=== PATIENT | male | born 1950 | race Two or more races ===

== ENCOUNTER 2021-03-15 13:35 | Inpatient (IN) | payer MEDICARE, MEDICAID ==
[~2021-03-15] VITALS: Ht 180.3 cm; Wt 64.9 kg
[2021-03-15] MEDS ORDERED: SODIUM CHLORIDE 0.9% 1000ML BAG (SEPSIS BOLUS) IV ONE (13:45)
[2021-03-15 14:22] LABS: BASOPHILS % 0.5 % (0.0-2.0); EOSINOPHILS % 0.1 % (0.0-5.0); HEMATOCRIT. 53.1 % (42.0-52.0); HEMOGLOBIN. 16.8 g/dL (14.0-18.0); LYMPHOCYTES % 18.7 % (20.0-50.0); MEAN CORPUSCULAR HEMOGLOBIN 30.5 pg (28.0-32.0); MEAN CORPUSCULAR VOLUME 96.3 fL (80.0-94.0); MEAN PLATELET VOLUME 11.4 fl (7.4-10.4); NEUTROPHILS % 75.7 % (40.0-76.0); PLATELET 127 x1000/uL (130-400); RED BLOOD CELL COUNT 5.51 mill/uL (4.7-6.1); RED CELL DISTRIBUTION WIDTH 17.7 % (11.6-14.6)
[2021-03-15 14:29] LABS: CHLORIDE 142 mEq/L (98-107)
[2021-03-15 14:31] LABS: INR 1.4; PROTHROMBIN TIME 14.7 sec (9.6-11.0)
[2021-03-15] MEDS ORDERED: LACTATED RINGERS 1,000 ML IV STA (14:45)
[2021-03-15 14:48] LABS: CLARITY URINE CLEAR (CLEAR); COLOR URINE DARK YELLOW (YELLOW); KETONES URINE TRACE (NEGATIVE); LEUKOCYTE ESTERASE URINE TRACE (NEGATIVE); NITRITE URINE NEGATIVE (NEGATIVE); OCCULT BLOOD URINE NEGATIVE (NEGATIVE); PROTEIN URINE TRACE (NEGATIVE); SPECIFIC GRAVITY URINE 1.027 (1.005-1.030)
[2021-03-15] MEDS ORDERED: VANCOMYCIN 1 G PREMIX 200 ML IV NR (14:56)
[2021-03-15] MEDS ORDERED: AZITHROMYCIN 500MG/250ML 250 ML IV NR (15:00)
[2021-03-15] MEDS ORDERED: PIPERACILLIN/TAZ 3.375G PREMIX 50 ML IV NR (15:00)
[2021-03-15] MEDS ORDERED: PIPERACILLIN/TAZOBACTAM 3.375GM/50ML PREMIX IV ONE (15:00)
[2021-03-15] MEDS ORDERED: CLONIDINE 0.1MG TABLET PO PRN (15:45)
[2021-03-15] MEDS ORDERED: LORAZEPAM 2MG/ML CPJ IV PRN (15:45)
[2021-03-15] MEDS ORDERED: HYDRALAZINE 20MG/ML VIAL IV PRN (15:45)
[2021-03-15] MEDS ORDERED: DEXTROSE 5% WATER 1,000 ML IV SCH (15:45)
[2021-03-15] MEDS ORDERED: DEXTROSE 50% WATER 50ML SYRINGE IV PRN (15:45)
[2021-03-15] MEDS ORDERED: DOCUSATE SODIUM 100MG CAPSULE PO PRN (15:45)
[2021-03-15] MEDS ORDERED: ONDANSETRON HCL 4MG/2ML INJ IV PRN (15:45)
[2021-03-15] MEDS ORDERED: HYDROCODONE/ACETAMINOPHEN 5/325MG TABLET PO PRN (15:45)
[2021-03-15] MEDS ORDERED: MAGNESIUM/ALUMINUM HYDROXIDE/SIMETHICONE 30ML UDC PO PRN (15:45)
[2021-03-15] MEDS ORDERED: IPRATROPIUM/ALBUTEROL 0.5-3(2.5)MG/3ML NEB HHN PRN (15:45)
[2021-03-15] MEDS ORDERED: PIPERACILLIN/TAZ 3.375G PREMIX 50 ML IV SCH (15:45)
[2021-03-15] MEDS ORDERED: MORPHINE SULFATE 2 MG/ML CPJ (NOT FOR IM USE) IV PRN (15:45)
[2021-03-15 16:11] LABS: BG BASE EXCESS -7.5 mmol/L (-2.0-2.0); BG CARBOXYHEMOGLOBIN 0.3 % (0.5-1.5); BG DEOXYHEMOGLOBIN 8.1 % (0.0-5.0); BG HCO3 ACT 14.7 mmol/L (22.0-26.0); BG METHEMOGLOBIN 0.3 % (0.0-1.5); BG OXYGEN SATURATION 91.9 % (92.0-98.5); BG OXYHEMOGLOBIN 91.3 % (94.0-97.0); BG PCO2 22.8 mmHg (35.0-45.0); BG PH 7.428 (7.350-7.450); BG PO2 66.7 mmHg (75.0-100.0); BG SAMPLE SITE RIGHT BRACHIAL; BG TOTAL HEMOGLOBIN 13.7 g/dL (12.0-18.0); BG VENT MODE MASK - NRB
[2021-03-15] MEDS: SODIUM CHLORIDE 0.45% 1,000 ML IV SCH ×2 (16:11→23:39)
[2021-03-15] MEDS ORDERED: PHENYLEPHRINE 100 MG in DEXT 5% WATER 240 ML IV PRN (16:15)
[2021-03-15] MEDS ORDERED: SODIUM CHLORIDE 10% FOR INH 15ML VIAL NEB INH SCH (16:15)
[2021-03-15] MEDS ORDERED: NOREPINEPHRINE 32 MG in DEXT 5% WATER 218 ML IV PRN (16:15)
[2021-03-15] MEDS ORDERED: ACETAMINOPHEN 650MG SUPP PR PRN (16:30)
[2021-03-15] MEDS: NOREPINEPHRINE 32 MG in DEXT 5% WATER 218 ML IV PRN (16:43)
[2021-03-15] MEDS: ENOXAPARIN 30MG/0.3ML SYR SUBCUT SCH (17:28)
[2021-03-15] MEDS: BLOOD SUGAR DIAGNOSTIC STRIP TEST SCH ×2 (17:33→21:02)
[2021-03-15] MEDS: INSULIN LISPRO 100 UNITS/ML SUBCUT SCH ×2 (17:40→21:00)
[2021-03-15] MEDS: IPRATROPIUM/ALBUTEROL 0.5-3(2.5)MG/3ML NEB HHN SCH ×2 (20:25→22:51)
[2021-03-15] MEDS: PIPERACILLIN/TAZOBACTAM 3.375G in DEXT 5% WATER 50ML IV SCH (22:43)
[2021-03-15] MEDS: SODIUM CHLORIDE 0.9% INJ 3ML FLUSH IVF SCH (22:44)
[2021-03-16] VITALS (68 sets, daily range): BP systolic 89–119; BP diastolic 42–82
[2021-03-16] MEDS: IPRATROPIUM/ALBUTEROL 0.5-3(2.5)MG/3ML NEB HHN SCH ×5 (04:20→20:10)
[2021-03-16] MEDS: SODIUM CHLORIDE 0.9% INJ 3ML FLUSH IVF SCH ×3 (06:00→21:32)
[2021-03-16 06:28] LABS: CHLORIDE 142 mEq/L (98-107)
[2021-03-16 06:31] LABS: HEMATOCRIT. 44.6 % (42.0-52.0); HEMOGLOBIN. 14.5 g/dL (14.0-18.0); MEAN CORPUSCULAR HEMOGLOBIN 30.3 pg (28.0-32.0); MEAN CORPUSCULAR VOLUME 93.1 fL (80.0-94.0); MEAN PLATELET VOLUME 11.6 fl (7.4-10.4); PLATELET 72 x1000/uL (130-400); RED BLOOD CELL COUNT 4.79 mill/uL (4.7-6.1); RED CELL DISTRIBUTION WIDTH 17.4 % (11.6-14.6)
[2021-03-16] MEDS ORDERED: NALOXONE HCL 0.4MG/ML VIAL IV PRN (07:30)
[2021-03-16] MEDS: INSULIN LISPRO 100 UNITS/ML SUBCUT SCH ×4 (08:20→21:00)
[2021-03-16] MEDS: BLOOD SUGAR DIAGNOSTIC STRIP TEST SCH ×4 (08:33→21:31)
[2021-03-16 08:38] LABS: PHOSPHORUS 2.4 mg/dL (2.5-4.9)
[2021-03-16] MEDS ORDERED: POTASSIUM CHLORIDE INJ 40 MEQ in DEXT 5% WATER 250 ML IV NR (09:00)
[2021-03-16 09:17] LABS: BG BASE EXCESS -4.7 mmol/L (-2.0-2.0); BG CARBOXYHEMOGLOBIN 0.1 % (0.5-1.5); BG DEOXYHEMOGLOBIN 3.2 % (0.0-5.0); BG FRACTION INSPIRED OXYGEN 99.8; BG HCO3 ACT 16.4 mmol/L (22.0-26.0); BG METHEMOGLOBIN 0.3 % (0.0-1.5); BG OXYGEN SATURATION 96.8 % (92.0-98.5); BG OXYHEMOGLOBIN 96.4 % (94.0-97.0); BG PO2 85.4 mmHg (75.0-100.0); BG SAMPLE SITE RIGHT RADIAL; BG TOTAL HEMOGLOBIN 14.3 g/dL (12.0-18.0); BG VENT MODE MASK - NRB
[2021-03-16] MEDS: PIPERACILLIN/TAZOBACTAM 3.375G in DEXT 5% WATER 50ML IV SCH ×3 (09:20→21:31)
[2021-03-16] MEDS: DEXTROSE 5% WATER 1,000 ML IV SCH ×3 (09:20→18:06)
[2021-03-16 11:01] LABS: PLATELET ESTIMATE DECREASED
[2021-03-16] MEDS ORDERED: LEVETIRACETAM 500 MG in SODIUM CHLORIDE 0.9% 100 ML IV SCH (11:45)
[2021-03-16] MEDS: LEVETIRACETAM 500MG PREMIX 100 ML IV SCH ×2 (13:05→21:31)
[2021-03-16] MEDS: ENOXAPARIN 30MG/0.3ML SYR SUBCUT SCH (18:06)
[2021-03-16] MEDS ORDERED: SODIUM CHLORIDE 3% FOR INH 4ML UD NEB INH NR (18:30)
[2021-03-17] VITALS (98 sets, daily range): BP systolic 55–130; BP diastolic 23–90
[2021-03-17] MEDS: IPRATROPIUM/ALBUTEROL 0.5-3(2.5)MG/3ML NEB HHN SCH ×6 (00:31→23:46)
[2021-03-17] MEDS: NOREPINEPHRINE 32 MG in DEXT 5% WATER 218 ML IV PRN (01:05)
[2021-03-17] MEDS: DEXTROSE 5% WATER 1,000 ML IV SCH ×2 (04:00→09:43)
[2021-03-17] MEDS: SODIUM CHLORIDE 0.9% INJ 3ML FLUSH IVF SCH ×3 (05:14→22:20)
[2021-03-17] MEDS: PIPERACILLIN/TAZOBACTAM 3.375G in DEXT 5% WATER 50ML IV SCH ×3 (05:14→22:21)
[2021-03-17 05:56] LABS: BASOPHILS % 0.1 % (0.0-2.0); EOSINOPHILS % 0.5 % (0.0-5.0); HEMATOCRIT. 35.8 % (42.0-52.0); HEMOGLOBIN. 12.1 g/dL (14.0-18.0); LYMPHOCYTES % 10.9 % (20.0-50.0); MEAN CORPUSCULAR HEMOGLOBIN 31.1 pg (28.0-32.0); MEAN PLATELET VOLUME 10.3 fl (7.4-10.4); MONOCYTES % 2.4 % (2.0-8.0); NEUTROPHILS % 86.1 % (40.0-76.0); RED BLOOD CELL COUNT 3.89 mill/uL (4.7-6.1); RED CELL DISTRIBUTION WIDTH 16.9 % (11.6-14.6)
[2021-03-17 06:04] LABS: PHOSPHORUS 1.7 mg/dL (2.5-4.9)
[2021-03-17 06:22] LABS: PLATELET 42 x1000/uL (130-400)
[2021-03-17 07:25] LABS: PLATELET ESTIMATE MARKEDLY DECREASED
[2021-03-17] MEDS: INSULIN LISPRO 100 UNITS/ML SUBCUT SCH ×4 (07:38→20:52)
[2021-03-17] MEDS: BLOOD SUGAR DIAGNOSTIC STRIP TEST SCH ×4 (07:38→20:52)
[2021-03-17] MEDS ORDERED: POTASSIUM CHLORIDE INJ 40 MEQ in DEXT 5% WATER 250 ML IV NR (09:00)
[2021-03-17] MEDS: LEVETIRACETAM 500MG PREMIX 100 ML IV SCH ×2 (09:43→20:54)
[2021-03-17] MEDS ORDERED: POTASSIUM PHOS,M-BASIC-D-BASIC 20 MMOL in DEXT 5% WATER 243.3333 ML IV NR (15:00)
[2021-03-18] VITALS (99 sets, daily range): BP systolic 56–161; BP diastolic 26–96
[2021-03-18] MEDS: DEXTROSE 5% WATER 1,000 ML IV SCH ×3 (00:38→19:16)
[2021-03-18] MEDS: IPRATROPIUM/ALBUTEROL 0.5-3(2.5)MG/3ML NEB HHN SCH ×5 (03:45→20:40)
[2021-03-18] MEDS: SODIUM CHLORIDE 0.9% INJ 3ML FLUSH IVF SCH ×3 (06:33→22:00)
[2021-03-18 06:52] LABS: BASOPHILS % 0.1 % (0.0-2.0); HEMATOCRIT. 29.5 % (42.0-52.0); HEMOGLOBIN. 10.2 g/dL (14.0-18.0); LYMPHOCYTES % 13.9 % (20.0-50.0); MEAN CORPUSCULAR HEMOGLOBIN 31.3 pg (28.0-32.0); MEAN CORPUSCULAR VOLUME 90.6 fL (80.0-94.0); MEAN PLATELET VOLUME 11.4 fl (7.4-10.4); MONOCYTES % 2.7 % (2.0-8.0); NEUTROPHILS % 82.3 % (40.0-76.0); RED BLOOD CELL COUNT 3.25 mill/uL (4.7-6.1); RED CELL DISTRIBUTION WIDTH 16.9 % (11.6-14.6)
[2021-03-18 06:55] LABS: CHLORIDE 129 mEq/L (98-107)
[2021-03-18] MEDS: PIPERACILLIN/TAZOBACTAM 3.375G in DEXT 5% WATER 50ML IV SCH ×2 (06:58→13:11)
[2021-03-18 07:02] LABS: PHOSPHORUS 2.5 mg/dL (2.5-4.9)
[2021-03-18 07:07] LABS: PLATELET 32 x1000/uL (130-400)
[2021-03-18] MEDS: BLOOD SUGAR DIAGNOSTIC STRIP TEST SCH ×4 (07:57→20:15)
[2021-03-18] MEDS: INSULIN LISPRO 100 UNITS/ML SUBCUT SCH ×4 (08:20→20:15)
[2021-03-18] MEDS ORDERED: POTASSIUM CHLORIDE 20MEQ/PACKET PO NR (08:30)
[2021-03-18] MEDS: LEVETIRACETAM 500MG PREMIX 100 ML IV SCH ×2 (09:08→20:14)
[2021-03-18] MEDS: MIDODRINE HCL 5MG TABLET PO SCH ×3 (09:26→16:31)
[2021-03-18] MEDS: PANTOPRAZOLE SODIUM 40 MG/VIAL IV SCH (10:36)
[2021-03-18] MEDS: MEROPENEM 1000MG in NORMAL SALINE 100ML IV SCH (16:43)
[2021-03-18] MEDS: ACETAMINOPHEN 325MG TABLET PO PRN (16:59)
[2021-03-18] MEDS: GUAIFENESIN 200MG/10ML SUGAR FREE UDC PO PRN ×3 (17:09→23:22)
[2021-03-19] VITALS (86 sets, daily range): BP systolic 72–167; BP diastolic 30–86
[2021-03-19] MEDS: MEROPENEM 1000MG in NORMAL SALINE 100ML IV SCH ×3 (02:40→17:30)
[2021-03-19] MEDS: DEXTROSE 5% WATER 1,000 ML IV SCH ×2 (04:56→16:00)
[2021-03-19] MEDS: SODIUM CHLORIDE 0.9% INJ 3ML FLUSH IVF SCH ×3 (06:29→22:21)
[2021-03-19 06:50] LABS: BASOPHILS % 0.1 % (0.0-2.0); EOSINOPHILS % 4.6 % (0.0-5.0); HEMATOCRIT. 28.6 % (42.0-52.0); HEMOGLOBIN. 10.2 g/dL (14.0-18.0); LYMPHOCYTES % 13.1 % (20.0-50.0); MEAN CORPUSCULAR HEMOGLOBIN 31.6 pg (28.0-32.0); MEAN CORPUSCULAR VOLUME 88.6 fL (80.0-94.0); MONOCYTES % 2.9 % (2.0-8.0); NEUTROPHILS % 79.3 % (40.0-76.0); RED BLOOD CELL COUNT 3.23 mill/uL (4.7-6.1); RED CELL DISTRIBUTION WIDTH 16.9 % (11.6-14.6)
[2021-03-19 06:57] LABS: CHLORIDE 116 mEq/L (98-107)
[2021-03-19 07:04] LABS: PHOSPHORUS 2.1 mg/dL (2.5-4.9)
[2021-03-19 07:12] LABS: PLATELET 43 x1000/uL (130-400)
[2021-03-19] MEDS: BLOOD SUGAR DIAGNOSTIC STRIP TEST SCH ×4 (07:56→21:00)
[2021-03-19] MEDS: INSULIN LISPRO 100 UNITS/ML SUBCUT SCH ×4 (07:57→21:00)
[2021-03-19] MEDS: PANTOPRAZOLE SODIUM 40 MG/VIAL IV SCH (08:35)
[2021-03-19] MEDS: CYANOCOBALAMIN 1000MCG TABLET PO SCH (08:36)
[2021-03-19] MEDS: LEVETIRACETAM 500MG PREMIX 100 ML IV SCH ×2 (08:36→20:11)
[2021-03-19] MEDS: MIDODRINE HCL 5MG TABLET PO SCH ×3 (08:36→17:31)
[2021-03-19] MEDS ORDERED: POTASSIUM CHLORIDE 20MEQ/PACKET NG NR (09:30)
[2021-03-19] MEDS: IPRATROPIUM/ALBUTEROL 0.5-3(2.5)MG/3ML NEB HHN SCH ×4 (09:39→20:51)
[2021-03-19] MEDS ORDERED: POTASSIUM PHOS,M-BASIC-D-BASIC 20 MMOL in DEXT 5% WATER 243.3333 ML IV SCH (11:00)
[2021-03-19] MEDS: NOREPINEPHRINE 32 MG in DEXT 5% WATER 218 ML IV PRN (11:07)
[2021-03-20] VITALS (98 sets, daily range): BP systolic 59–178; BP diastolic 35–102
[2021-03-20] MEDS: IPRATROPIUM/ALBUTEROL 0.5-3(2.5)MG/3ML NEB HHN SCH ×5 (00:37→20:30)
[2021-03-20] MEDS: MEROPENEM 1000MG in NORMAL SALINE 100ML IV SCH ×3 (02:27→17:09)
[2021-03-20 04:16] LABS: BASOPHILS % 0.2 % (0.0-2.0); EOSINOPHILS % 2.5 % (0.0-5.0); HEMATOCRIT. 29.1 % (42.0-52.0); HEMOGLOBIN. 10.3 g/dL (14.0-18.0); LYMPHOCYTES % 9.4 % (20.0-50.0); MEAN CORPUSCULAR VOLUME 87.6 fL (80.0-94.0); MEAN PLATELET VOLUME 11.2 fl (7.4-10.4); NEUTROPHILS % 84.9 % (40.0-76.0); RED BLOOD CELL COUNT 3.32 mill/uL (4.7-6.1); RED CELL DISTRIBUTION WIDTH 16.9 % (11.6-14.6)
[2021-03-20 04:17] LABS: CHLORIDE 111 mEq/L (98-107)
[2021-03-20 04:21] LABS: PLATELET 47 x1000/uL (130-400)
[2021-03-20 04:23] LABS: PHOSPHORUS 2.2 mg/dL (2.5-4.9)
[2021-03-20] MEDS: SODIUM CHLORIDE 0.9% INJ 3ML FLUSH IVF SCH ×2 (06:00→14:00)
[2021-03-20] MEDS: LEVETIRACETAM 500MG PREMIX 100 ML IV SCH ×2 (08:33→20:50)
[2021-03-20] MEDS: BLOOD SUGAR DIAGNOSTIC STRIP TEST SCH ×4 (08:37→21:04)
[2021-03-20] MEDS: PANTOPRAZOLE SODIUM 40 MG/VIAL IV SCH (08:43)
[2021-03-20] MEDS: CYANOCOBALAMIN 1000MCG TABLET PO SCH (08:43)
[2021-03-20] MEDS: MIDODRINE HCL 5MG TABLET PO SCH ×3 (08:43→17:09)
[2021-03-20] MEDS: INSULIN LISPRO 100 UNITS/ML SUBCUT SCH ×4 (08:45→21:11)
[2021-03-20] MEDS ORDERED: POTASSIUM CHLORIDE 20MEQ/PACKET NG NR (09:15)
[2021-03-20] MEDS ORDERED: POTASSIUM PHOS,M-BASIC-D-BASIC 20 MMOL in DEXT 5% WATER 243.3333 ML IV NR (11:00)
[2021-03-20] MEDS: NOREPINEPHRINE 32 MG in DEXT 5% WATER 218 ML IV PRN (17:10)
[2021-03-21] VITALS (95 sets, daily range): BP systolic 75–151; BP diastolic 45–95
[2021-03-21] MEDS: IPRATROPIUM/ALBUTEROL 0.5-3(2.5)MG/3ML NEB HHN SCH ×6 (00:17→20:30)
[2021-03-21] MEDS: MEROPENEM 1000MG in NORMAL SALINE 100ML IV SCH ×3 (01:34→17:39)
[2021-03-21 06:14] LABS: BASOPHILS % 0.1 % (0.0-2.0); EOSINOPHILS % 2.3 % (0.0-5.0); HEMATOCRIT. 30.3 % (42.0-52.0); HEMOGLOBIN. 10.7 g/dL (14.0-18.0); MEAN PLATELET VOLUME 11.2 fl (7.4-10.4); MONOCYTES % 4.1 % (2.0-8.0); NEUTROPHILS % 83.5 % (40.0-76.0); PLATELET 70 x1000/uL (130-400); RED BLOOD CELL COUNT 3.44 mill/uL (4.7-6.1)
[2021-03-21 06:24] LABS: CHLORIDE 108 mEq/L (98-107)
[2021-03-21 06:32] LABS: PHOSPHORUS 2.4 mg/dL (2.5-4.9)
[2021-03-21] MEDS: BLOOD SUGAR DIAGNOSTIC STRIP TEST SCH ×4 (07:54→21:55)
[2021-03-21] MEDS: INSULIN LISPRO 100 UNITS/ML SUBCUT SCH ×4 (07:54→21:56)
[2021-03-21] MEDS: PANTOPRAZOLE SODIUM 40 MG/VIAL IV SCH (09:21)
[2021-03-21] MEDS: MIDODRINE HCL 5MG TABLET PO SCH ×3 (09:22→17:39)
[2021-03-21] MEDS: CYANOCOBALAMIN 1000MCG TABLET PO SCH (09:23)
[2021-03-21] MEDS: LEVETIRACETAM 500MG PREMIX 100 ML IV SCH ×2 (10:48→21:56)
[2021-03-21] MEDS ORDERED: SODIUM PHOS,M-BASIC-D-BASIC 10 MM in DEXT 5% WATER 246.6667 ML IV SCH (11:00)
[2021-03-21] MEDS: SODIUM CHLORIDE 0.9% INJ 3ML FLUSH IVF SCH ×2 (14:00→21:55)
[2021-03-21] MEDS: NOREPINEPHRINE 32 MG in DEXT 5% WATER 218 ML IV PRN (23:32)
[2021-03-22] VITALS (97 sets, daily range): BP systolic 76–129; BP diastolic 19–74
[2021-03-22] MEDS: IPRATROPIUM/ALBUTEROL 0.5-3(2.5)MG/3ML NEB HHN SCH ×6 (00:51→20:23)
[2021-03-22] MEDS: MEROPENEM 1000MG in NORMAL SALINE 100ML IV SCH ×3 (02:48→17:33)
[2021-03-22] MEDS: SODIUM CHLORIDE 0.9% INJ 3ML FLUSH IVF SCH ×3 (05:19→22:45)
[2021-03-22 05:52] LABS: CHLORIDE 108 mEq/L (98-107)
[2021-03-22 05:58] LABS: PHOSPHORUS 2.1 mg/dL (2.5-4.9)
[2021-03-22 06:03] LABS: BASOPHILS % 0.2 % (0.0-2.0); EOSINOPHILS % 2.8 % (0.0-5.0); HEMATOCRIT. 26.1 % (42.0-52.0); HEMOGLOBIN. 9.2 g/dL (14.0-18.0); LYMPHOCYTES % 10.8 % (20.0-50.0); MEAN CORPUSCULAR HEMOGLOBIN 30.9 pg (28.0-32.0); MEAN CORPUSCULAR VOLUME 87.6 fL (80.0-94.0); MEAN PLATELET VOLUME 11.1 fl (7.4-10.4); MONOCYTES % 3.5 % (2.0-8.0); NEUTROPHILS % 82.7 % (40.0-76.0); PLATELET 89 x1000/uL (130-400); RED BLOOD CELL COUNT 2.98 mill/uL (4.7-6.1); RED CELL DISTRIBUTION WIDTH 17.3 % (11.6-14.6)
[2021-03-22] MEDS ORDERED: SODIUM PHOS,M-BASIC-D-BASIC 20 MM in DEXT 5% WATER 243.3333 ML IV SCH (07:00)
[2021-03-22] MEDS: BLOOD SUGAR DIAGNOSTIC STRIP TEST SCH ×4 (07:50→20:26)
[2021-03-22] MEDS: INSULIN LISPRO 100 UNITS/ML SUBCUT SCH ×4 (08:20→20:26)
[2021-03-22] MEDS: LEVETIRACETAM 500MG PREMIX 100 ML IV SCH ×2 (09:07→20:26)
[2021-03-22] MEDS: MIDODRINE HCL 5MG TABLET PO SCH ×3 (09:07→17:33)
[2021-03-22] MEDS: PANTOPRAZOLE SODIUM 40 MG/VIAL IV SCH (09:07)
[2021-03-22] MEDS: CYANOCOBALAMIN 1000MCG TABLET PO SCH (09:07)
[2021-03-23] VITALS (98 sets, daily range): BP systolic 66–133; BP diastolic 33–78
[2021-03-23] MEDS: IPRATROPIUM/ALBUTEROL 0.5-3(2.5)MG/3ML NEB HHN SCH ×5 (00:33→20:19)
[2021-03-23] MEDS: NOREPINEPHRINE 32 MG in DEXT 5% WATER 218 ML IV PRN ×3 (00:50→01:56)
[2021-03-23] MEDS: MEROPENEM 1000MG in NORMAL SALINE 100ML IV SCH ×2 (01:03→09:29)
[2021-03-23 06:06] LABS: CHLORIDE 107 mEq/L (98-107)
[2021-03-23 06:16] LABS: PHOSPHORUS 2.4 mg/dL (2.5-4.9)
[2021-03-23] MEDS: BLOOD SUGAR DIAGNOSTIC STRIP TEST SCH ×4 (07:50→20:39)
[2021-03-23] MEDS: INSULIN LISPRO 100 UNITS/ML SUBCUT SCH ×4 (08:20→21:00)
[2021-03-23] MEDS: CYANOCOBALAMIN 1000MCG TABLET PO SCH (09:29)
[2021-03-23] MEDS: PANTOPRAZOLE SODIUM 40 MG/VIAL IV SCH (09:29)
[2021-03-23] MEDS: MIDODRINE HCL 5MG TABLET PO SCH ×3 (09:29→18:05)
[2021-03-23] MEDS: LEVETIRACETAM 500MG PREMIX 100 ML IV SCH ×2 (09:29→20:39)
[2021-03-23] MEDS ORDERED: POTASSIUM PHOS,M-BASIC-D-BASIC 20 MMOL in DEXT 5% WATER 243.3333 ML IV NR (10:00)
[2021-03-23 10:16] LABS: BASOPHILS % 0.3 % (0.0-2.0); HEMATOCRIT. 26.1 % (42.0-52.0); HEMOGLOBIN. 9.1 g/dL (14.0-18.0); LYMPHOCYTES % 11.1 % (20.0-50.0); MEAN CORPUSCULAR HEMOGLOBIN 31.2 pg (28.0-32.0); MEAN CORPUSCULAR VOLUME 89.2 fL (80.0-94.0); MEAN PLATELET VOLUME 11.4 fl (7.4-10.4); MONOCYTES % 5.3 % (2.0-8.0); NEUTROPHILS % 81.3 % (40.0-76.0); PLATELET 134 x1000/uL (130-400); RED BLOOD CELL COUNT 2.93 mill/uL (4.7-6.1); RED CELL DISTRIBUTION WIDTH 16.6 % (11.6-14.6)
[2021-03-23] MEDS ORDERED: SODIUM CHLORIDE 0.45% 250 ML IV NR (12:30)
[2021-03-23] MEDS: SODIUM CHLORIDE 0.9% INJ 3ML FLUSH IVF SCH ×2 (14:00→21:26)
[2021-03-23] MEDS ORDERED: SODIUM CHLORIDE 0.45% 250 ML IV ONE (14:00)
[2021-03-23] MEDS ORDERED: IPRATROPIUM/ALBUTEROL 0.5-3(2.5)MG/3ML NEB ONE (17:10)
[2021-03-23] MEDS: GUAIFENESIN 200MG/10ML SUGAR FREE UDC PO PRN (20:39)
[2021-03-24] VITALS (69 sets, daily range): BP systolic 62–114; BP diastolic 38–81
[2021-03-24] MEDS: IPRATROPIUM/ALBUTEROL 0.5-3(2.5)MG/3ML NEB HHN SCH ×6 (00:36→20:25)
[2021-03-24] MEDS: SODIUM CHLORIDE 0.9% INJ 3ML FLUSH IVF SCH ×3 (06:00→21:48)
[2021-03-24] MEDS: BLOOD SUGAR DIAGNOSTIC STRIP TEST SCH ×4 (07:50→21:00)
[2021-03-24] MEDS: INSULIN LISPRO 100 UNITS/ML SUBCUT SCH ×4 (08:20→21:00)
[2021-03-24] MEDS: PANTOPRAZOLE SODIUM 40 MG/VIAL IV SCH (08:31)
[2021-03-24] MEDS: MIDODRINE HCL 5MG TABLET PO SCH ×3 (08:32→17:03)
[2021-03-24] MEDS: LEVETIRACETAM 500MG PREMIX 100 ML IV SCH ×2 (08:32→21:47)
[2021-03-24] MEDS: CYANOCOBALAMIN 1000MCG TABLET PO SCH (08:32)
[2021-03-24 13:12] LABS: BASOPHILS % 0.3 % (0.0-2.0); EOSINOPHILS % 1.2 % (0.0-5.0); HEMATOCRIT. 22.3 % (42.0-52.0); HEMOGLOBIN. 7.8 g/dL (14.0-18.0); LYMPHOCYTES % 11.8 % (20.0-50.0); MEAN CORPUSCULAR VOLUME 88.7 fL (80.0-94.0); MEAN PLATELET VOLUME 10.9 fl (7.4-10.4); MONOCYTES % 5.2 % (2.0-8.0); NEUTROPHILS % 81.5 % (40.0-76.0); PLATELET 133 x1000/uL (130-400); RED BLOOD CELL COUNT 2.51 mill/uL (4.7-6.1); RED CELL DISTRIBUTION WIDTH 16.9 % (11.6-14.6)
[2021-03-24 13:22] LABS: CHLORIDE 106 mEq/L (98-107)
[2021-03-24] MEDS: ASCORBIC ACID 500 MG TABLET PO SCH (17:03)
[2021-03-24] MEDS: GUAIFENESIN 200MG/10ML SUGAR FREE UDC PO SCH ×2 (17:03→23:19)
[2021-03-24] MEDS: ZINC SULFATE 220 MG ( 50 ) CAPSULE PO SCH (17:03)
[2021-03-25] VITALS (68 sets, daily range): BP systolic 44–122; BP diastolic 23–79
[2021-03-25] MEDS: IPRATROPIUM/ALBUTEROL 0.5-3(2.5)MG/3ML NEB HHN SCH ×5 (00:34→15:15)
[2021-03-25] MEDS: GUAIFENESIN 200MG/10ML SUGAR FREE UDC PO SCH ×3 (05:32→17:50)
[2021-03-25] MEDS: SODIUM CHLORIDE 0.9% INJ 3ML FLUSH IVF SCH ×3 (05:33→22:00)
[2021-03-25 06:59] LABS: BASOPHILS % 0.2 % (0.0-2.0); EOSINOPHILS % 1.1 % (0.0-5.0); HEMATOCRIT. 21.1 % (42.0-52.0); HEMOGLOBIN. 7.4 g/dL (14.0-18.0); LYMPHOCYTES % 10.5 % (20.0-50.0); MEAN CORPUSCULAR HEMOGLOBIN 30.8 pg (28.0-32.0); MEAN CORPUSCULAR VOLUME 87.7 fL (80.0-94.0); MEAN PLATELET VOLUME 10.8 fl (7.4-10.4); MONOCYTES % 5.7 % (2.0-8.0); NEUTROPHILS % 82.5 % (40.0-76.0); PLATELET 149 x1000/uL (130-400); RED CELL DISTRIBUTION WIDTH 17.1 % (11.6-14.6)
[2021-03-25 07:00] LABS: CHLORIDE 105 mEq/L (98-107)
[2021-03-25] MEDS: INSULIN LISPRO 100 UNITS/ML SUBCUT SCH ×4 (08:20→21:00)
[2021-03-25] MEDS: BLOOD SUGAR DIAGNOSTIC STRIP TEST SCH ×4 (08:30→21:53)
[2021-03-25] MEDS: ZINC SULFATE 220 MG ( 50 ) CAPSULE PO SCH (09:32)
[2021-03-25] MEDS: LEVETIRACETAM 500MG PREMIX 100 ML IV SCH ×2 (09:32→21:52)
[2021-03-25] MEDS: ASCORBIC ACID 500 MG TABLET PO SCH (09:32)
[2021-03-25] MEDS: MIDODRINE HCL 5MG TABLET PO SCH ×3 (09:33→17:50)
[2021-03-25] MEDS: PANTOPRAZOLE SODIUM 40 MG/VIAL IV SCH (09:36)
[2021-03-26] VITALS (54 sets, daily range): BP systolic 74–120; BP diastolic 36–66
[2021-03-26] MEDS: GUAIFENESIN 200MG/10ML SUGAR FREE UDC PO SCH ×4 (00:17→17:20)
[2021-03-26] MEDS: IPRATROPIUM/ALBUTEROL 0.5-3(2.5)MG/3ML NEB HHN SCH ×6 (00:29→20:44)
[2021-03-26] MEDS: SODIUM CHLORIDE 0.9% INJ 3ML FLUSH IVF SCH ×3 (06:00→21:31)
[2021-03-26 06:53] LABS: BASOPHILS % 0.6 % (0.0-2.0); EOSINOPHILS % 1.2 % (0.0-5.0); HEMATOCRIT. 22.1 % (42.0-52.0); HEMOGLOBIN. 7.8 g/dL (14.0-18.0); LYMPHOCYTES % 11.4 % (20.0-50.0); MEAN CORPUSCULAR HEMOGLOBIN 30.8 pg (28.0-32.0); MEAN CORPUSCULAR VOLUME 87.4 fL (80.0-94.0); MEAN PLATELET VOLUME 10.7 fl (7.4-10.4); MONOCYTES % 6.3 % (2.0-8.0); NEUTROPHILS % 80.5 % (40.0-76.0); PLATELET 197 x1000/uL (130-400); RED BLOOD CELL COUNT 2.53 mill/uL (4.7-6.1); RED CELL DISTRIBUTION WIDTH 16.9 % (11.6-14.6)
[2021-03-26 07:04] LABS: CHLORIDE 105 mEq/L (98-107)
[2021-03-26] MEDS: INSULIN LISPRO 100 UNITS/ML SUBCUT SCH ×4 (07:47→21:00)
[2021-03-26] MEDS: BLOOD SUGAR DIAGNOSTIC STRIP TEST SCH ×4 (07:47→21:31)
[2021-03-26] MEDS: LEVETIRACETAM 500MG PREMIX 100 ML IV SCH ×2 (09:07→21:38)
[2021-03-26] MEDS: PANTOPRAZOLE SODIUM 40 MG/VIAL IV SCH (10:26)
[2021-03-26] MEDS: ASCORBIC ACID 500 MG TABLET PO SCH (10:27)
[2021-03-26] MEDS: MIDODRINE HCL 5MG TABLET PO SCH ×3 (10:27→17:20)
[2021-03-26] MEDS: ZINC SULFATE 220 MG ( 50 ) CAPSULE PO SCH (10:27)
[2021-03-27] VITALS (24 sets, daily range): BP systolic 71–141; BP diastolic 34–80
[2021-03-27] MEDS: IPRATROPIUM/ALBUTEROL 0.5-3(2.5)MG/3ML NEB HHN SCH ×6 (00:30→20:22)
[2021-03-27] MEDS: GUAIFENESIN 200MG/10ML SUGAR FREE UDC PO SCH ×4 (00:52→18:39)
[2021-03-27] MEDS: SODIUM CHLORIDE 0.9% INJ 3ML FLUSH IVF SCH ×3 (05:06→21:03)
[2021-03-27 06:17] LABS: BASOPHILS % 0.9 % (0.0-2.0); EOSINOPHILS % 1.3 % (0.0-5.0); HEMOGLOBIN. 7.7 g/dL (14.0-18.0); MEAN CORPUSCULAR HEMOGLOBIN 30.4 pg (28.0-32.0); MEAN CORPUSCULAR VOLUME 87.1 fL (80.0-94.0); MEAN PLATELET VOLUME 10.1 fl (7.4-10.4); MONOCYTES % 7.7 % (2.0-8.0); NEUTROPHILS % 78.1 % (40.0-76.0); PLATELET 215 x1000/uL (130-400); RED BLOOD CELL COUNT 2.53 mill/uL (4.7-6.1); RED CELL DISTRIBUTION WIDTH 17.1 % (11.6-14.6)
[2021-03-27 06:22] LABS: CHLORIDE 104 mEq/L (98-107)
[2021-03-27] MEDS: INSULIN LISPRO 100 UNITS/ML SUBCUT SCH ×4 (08:20→21:00)
[2021-03-27] MEDS: BLOOD SUGAR DIAGNOSTIC STRIP TEST SCH ×4 (08:40→20:51)
[2021-03-27] MEDS: LEVETIRACETAM 500MG PREMIX 100 ML IV SCH ×2 (09:24→20:51)
[2021-03-27] MEDS: PANTOPRAZOLE SODIUM 40 MG/VIAL IV SCH (09:25)
[2021-03-27] MEDS: ASCORBIC ACID 500 MG TABLET PO SCH (09:25)
[2021-03-27] MEDS: ZINC SULFATE 220 MG ( 50 ) CAPSULE PO SCH (09:25)
[2021-03-27] MEDS: MIDODRINE HCL 5MG TABLET PO SCH ×3 (09:25→18:39)
[2021-03-27] MEDS ORDERED: SODIUM CHLORIDE 0.9% 500 ML IV ONE (13:30)
[2021-03-27] MEDS ORDERED: SODIUM CHLORIDE 0.9% 500 ML IV SCH (13:30)
[2021-03-28] VITALS (12 sets, daily range): BP systolic 97–131; BP diastolic 41–68
[2021-03-28] MEDS: IPRATROPIUM/ALBUTEROL 0.5-3(2.5)MG/3ML NEB HHN SCH ×5 (00:15→20:47)
[2021-03-28] MEDS: GUAIFENESIN 200MG/10ML SUGAR FREE UDC PO SCH ×4 (00:26→17:39)
[2021-03-28] MEDS: SODIUM CHLORIDE 0.9% INJ 3ML FLUSH IVF SCH ×3 (05:56→21:29)
[2021-03-28] MEDS ORDERED: LORAZEPAM 2MG/ML CPJ IV PRN (06:45)
[2021-03-28] MEDS: INSULIN LISPRO 100 UNITS/ML SUBCUT SCH ×4 (08:00→21:00)
[2021-03-28 08:13] LABS: HEMATOCRIT 28.7 % (42.0-52.0); HEMOGLOBIN 9.8 g/dL (14.0-18.0)
[2021-03-28] MEDS: BLOOD SUGAR DIAGNOSTIC STRIP TEST SCH ×4 (08:18→21:29)
[2021-03-28] MEDS: LEVETIRACETAM 500MG PREMIX 100 ML IV SCH (10:00)
[2021-03-28] MEDS: PANTOPRAZOLE SODIUM 40 MG/VIAL IV SCH (10:01)
[2021-03-28] MEDS: ASCORBIC ACID 500 MG TABLET PO SCH (13:00)
[2021-03-28] MEDS: ZINC SULFATE 220 MG ( 50 ) CAPSULE PO SCH (13:00)
[2021-03-28] MEDS: MIDODRINE HCL 5MG TABLET PO SCH (14:23)
[2021-03-28] MEDS: ACETAMINOPHEN 325MG TABLET PO PRN (14:24)
[2021-03-28] MEDS: LEVETIRACETAM 1,250 MG in SODIUM CHLORIDE 0.9% 100 ML IV SCH (21:59)
[2021-03-29] VITALS (12 sets, daily range): BP systolic 99–132; BP diastolic 54–67
[2021-03-29] MEDS: GUAIFENESIN 200MG/10ML SUGAR FREE UDC PO SCH ×4 (01:03→18:27)
[2021-03-29] MEDS: IPRATROPIUM/ALBUTEROL 0.5-3(2.5)MG/3ML NEB HHN SCH ×6 (02:25→20:10)
[2021-03-29 06:17] LABS: HEMATOCRIT. 24.9 % (42.0-52.0); HEMOGLOBIN. 8.3 g/dL (14.0-18.0); MEAN CORPUSCULAR HEMOGLOBIN 29.9 pg (28.0-32.0); MEAN CORPUSCULAR VOLUME 89.9 fL (80.0-94.0); MEAN PLATELET VOLUME 9.7 fl (7.4-10.4); PLATELET 253 x1000/uL (130-400); RED BLOOD CELL COUNT 2.77 mill/uL (4.7-6.1); RED CELL DISTRIBUTION WIDTH 17.5 % (11.6-14.6)
[2021-03-29 06:30] LABS: CHLORIDE 107 mEq/L (98-107)
[2021-03-29] MEDS: SODIUM CHLORIDE 0.9% INJ 3ML FLUSH IVF SCH ×3 (06:40→22:52)
[2021-03-29] MEDS: INSULIN LISPRO 100 UNITS/ML SUBCUT SCH ×4 (08:00→20:54)
[2021-03-29] MEDS: BLOOD SUGAR DIAGNOSTIC STRIP TEST SCH ×4 (08:12→20:26)
[2021-03-29] MEDS: PANTOPRAZOLE SODIUM 40 MG/VIAL IV SCH (09:30)
[2021-03-29] MEDS: ASCORBIC ACID 500 MG TABLET PO SCH (09:30)
[2021-03-29] MEDS: ZINC SULFATE 220 MG ( 50 ) CAPSULE PO SCH (09:30)
[2021-03-29] MEDS: LEVETIRACETAM 1,250 MG in SODIUM CHLORIDE 0.9% 100 ML IV SCH ×2 (09:30→20:25)
[2021-03-29] MEDS: MIDODRINE HCL 5MG TABLET PO SCH ×3 (09:32→20:26)
[2021-03-29] MEDS ORDERED: VANCOMYCIN 1250MG in DEXTROSE 5% WATER 250ML IV NR (16:00)
[2021-03-29] MEDS: MEROPENEM 1,000 MG in SODIUM CHLORIDE 0.9% 100 ML IV SCH (16:25)
[2021-03-29] MEDS: VANCOMYCIN 750 MG PREMIX 150 ML IV SCH ×2 (18:16→18:27)
[2021-03-29 19:09] LABS: COLOR URINE ORANGE (YELLOW); KETONES URINE TRACE (NEGATIVE); LEUKOCYTE ESTERASE URINE 1+ (NEGATIVE); NITRITE URINE NEGATIVE (NEGATIVE); OCCULT BLOOD URINE NEGATIVE (NEGATIVE); PH URINE 5.5 (4.5-8.0); PROTEIN URINE 1+ (NEGATIVE); SPECIFIC GRAVITY URINE 1.029 (1.005-1.030)
[2021-03-29 19:22] LABS: CLARITY URINE HAZY (CLEAR)
[2021-03-29] MEDS: ACETAMINOPHEN 325MG TABLET PO PRN (20:26)
[2021-03-29 23:24] LABS: PLATELET ESTIMATE NORMAL
[2021-03-30] VITALS (12 sets, daily range): BP systolic 88–105; BP diastolic 40–62
[2021-03-30] MEDS: GUAIFENESIN 200MG/10ML SUGAR FREE UDC PO SCH ×5 (00:56→23:32)
[2021-03-30] MEDS: MEROPENEM 1,000 MG in SODIUM CHLORIDE 0.9% 100 ML IV SCH ×4 (00:56→23:32)
[2021-03-30] MEDS: IPRATROPIUM/ALBUTEROL 0.5-3(2.5)MG/3ML NEB HHN SCH ×6 (01:04→20:50)
[2021-03-30] MEDS: SODIUM CHLORIDE 0.9% INJ 3ML FLUSH IVF SCH ×3 (05:09→21:32)
[2021-03-30 07:05] LABS: BASOPHILS % 0.4 % (0.0-2.0); CHLORIDE 105 mEq/L (98-107); EOSINOPHILS % 0.7 % (0.0-5.0); HEMATOCRIT. 23.8 % (42.0-52.0); LYMPHOCYTES % 8.9 % (20.0-50.0); MEAN CORPUSCULAR HEMOGLOBIN 30.1 pg (28.0-32.0); MEAN PLATELET VOLUME 9.2 fl (7.4-10.4); MONOCYTES % 5.7 % (2.0-8.0); NEUTROPHILS % 84.3 % (40.0-76.0); PLATELET 247 x1000/uL (130-400); RED BLOOD CELL COUNT 2.67 mill/uL (4.7-6.1); RED CELL DISTRIBUTION WIDTH 17.6 % (11.6-14.6)
[2021-03-30 07:18] LABS: CREATINE KINASE 24 IU/L (39-308)
[2021-03-30] MEDS: INSULIN LISPRO 100 UNITS/ML SUBCUT SCH ×4 (08:00→20:50)
[2021-03-30] MEDS: BLOOD SUGAR DIAGNOSTIC STRIP TEST SCH ×4 (08:10→20:50)
[2021-03-30] MEDS: MIDODRINE HCL 5MG TABLET PO SCH ×3 (08:41→16:23)
[2021-03-30] MEDS: ZINC SULFATE 220 MG ( 50 ) CAPSULE PO SCH (08:41)
[2021-03-30] MEDS: ASCORBIC ACID 500 MG TABLET PO SCH (08:41)
[2021-03-30] MEDS: PANTOPRAZOLE SODIUM 40 MG/VIAL IV SCH (08:41)
[2021-03-30] MEDS: LEVETIRACETAM 1,250 MG in SODIUM CHLORIDE 0.9% 100 ML IV SCH ×2 (09:37→21:07)
[2021-03-30] MEDS: VANCOMYCIN 750 MG PREMIX 150 ML IV SCH ×2 (10:50→21:30)
[2021-03-31] VITALS (11 sets, daily range): BP systolic 80–101; BP diastolic 36–63
[2021-03-31] MEDS: IPRATROPIUM/ALBUTEROL 0.5-3(2.5)MG/3ML NEB HHN SCH ×7 (00:45→21:53)
[2021-03-31] MEDS: SODIUM CHLORIDE 0.9% INJ 3ML FLUSH IVF SCH ×2 (06:26→21:44)
[2021-03-31] MEDS: GUAIFENESIN 200MG/10ML SUGAR FREE UDC PO SCH ×3 (06:26→17:42)
[2021-03-31] MEDS: BLOOD SUGAR DIAGNOSTIC STRIP TEST SCH ×4 (07:30→21:43)
[2021-03-31] MEDS: INSULIN LISPRO 100 UNITS/ML SUBCUT SCH ×4 (08:00→21:00)
[2021-03-31 08:08] LABS: BASOPHILS % 0.6 % (0.0-2.0); EOSINOPHILS % 1.5 % (0.0-5.0); LYMPHOCYTES % 13.7 % (20.0-50.0); MEAN CORPUSCULAR HEMOGLOBIN 28.9 pg (28.0-32.0); MEAN CORPUSCULAR VOLUME 86.3 fL (80.0-94.0); MEAN PLATELET VOLUME 9.1 fl (7.4-10.4); MONOCYTES % 7.6 % (2.0-8.0); NEUTROPHILS % 76.6 % (40.0-76.0); PLATELET 212 x1000/uL (130-400); RED BLOOD CELL COUNT 2.42 mill/uL (4.7-6.1); RED CELL DISTRIBUTION WIDTH 17.3 % (11.6-14.6)
[2021-03-31 08:10] LABS: CHLORIDE 107 mEq/L (98-107)
[2021-03-31 08:32] LABS: HEMATOCRIT. 20.8 % (42.0-52.0)
[2021-03-31] MEDS: PANTOPRAZOLE SODIUM 40 MG/VIAL IV SCH (09:20)
[2021-03-31] MEDS: MEROPENEM 1,000 MG in SODIUM CHLORIDE 0.9% 100 ML IV SCH ×2 (09:20→15:32)
[2021-03-31] MEDS: LEVETIRACETAM 1,250 MG in SODIUM CHLORIDE 0.9% 100 ML IV SCH ×2 (09:20→21:43)
[2021-03-31] MEDS: ZINC SULFATE 220 MG ( 50 ) CAPSULE PO SCH (09:22)
[2021-03-31] MEDS: ASCORBIC ACID 500 MG TABLET PO SCH (09:22)
[2021-03-31] MEDS: MIDODRINE HCL 5MG TABLET PO SCH ×3 (09:22→17:42)
[2021-03-31] MEDS: VANCOMYCIN 750 MG PREMIX 150 ML IV SCH (10:43)
[2021-03-31] MEDS ORDERED: POTASSIUM CHLORIDE 20MEQ/PACKET PO SCH (11:30)
[2021-03-31 15:42] LABS: TOTAL IRON BINDING CAPACITY 120 ug/dL (250-450)
[2021-03-31 16:05] LABS: FOLIC ACID (FOLATE) SERUM 11.2 ng/mL (>5.38)
[2021-03-31 19:56] LABS: HEMOGLOBIN 7.9 g/dL (14.0-18.0)
[2021-04-01] VITALS: BP 104/62
[2021-04-01] MEDS: MEROPENEM 1,000 MG in SODIUM CHLORIDE 0.9% 100 ML IV SCH ×4 (00:35→23:46)
[2021-04-01] MEDS: GUAIFENESIN 200MG/10ML SUGAR FREE UDC PO SCH ×5 (00:35→23:46)
[2021-04-01] MEDS: IPRATROPIUM/ALBUTEROL 0.5-3(2.5)MG/3ML NEB HHN SCH ×6 (01:43→21:44)
[2021-04-01 04:00] VITALS: BP 110/59
[2021-04-01] MEDS: SODIUM CHLORIDE 0.9% INJ 3ML FLUSH IVF SCH ×3 (06:42→22:06)
[2021-04-01] MEDS: INSULIN LISPRO 100 UNITS/ML SUBCUT SCH ×4 (08:00→21:00)
[2021-04-01 08:09] VITALS: BP 86/54
[2021-04-01] MEDS: BLOOD SUGAR DIAGNOSTIC STRIP TEST SCH ×4 (08:26→21:00)
[2021-04-01] MEDS: ASCORBIC ACID 500 MG TABLET PO SCH (08:55)
[2021-04-01] MEDS: PANTOPRAZOLE SODIUM 40 MG/VIAL IV SCH (08:55)
[2021-04-01] MEDS: MIDODRINE HCL 5MG TABLET PO SCH ×3 (08:55→16:50)
[2021-04-01] MEDS: ZINC SULFATE 220 MG ( 50 ) CAPSULE PO SCH (08:56)
[2021-04-01] MEDS: LEVETIRACETAM 1,250 MG in SODIUM CHLORIDE 0.9% 100 ML IV SCH ×2 (09:25→22:06)
[2021-04-01 12:00] VITALS: BP 90/55
[2021-04-01 12:13] LABS: BASOPHILS % 0.9 % (0.0-2.0); EOSINOPHILS % 1.9 % (0.0-5.0); HEMATOCRIT. 25.6 % (42.0-52.0); HEMOGLOBIN. 8.6 g/dL (14.0-18.0); LYMPHOCYTES % 14.1 % (20.0-50.0); MEAN CORPUSCULAR HEMOGLOBIN 29.5 pg (28.0-32.0); MEAN CORPUSCULAR VOLUME 88.2 fL (80.0-94.0); MEAN PLATELET VOLUME 8.9 fl (7.4-10.4); MONOCYTES % 8.8 % (2.0-8.0); NEUTROPHILS % 74.3 % (40.0-76.0); PLATELET 259 x1000/uL (130-400); RED BLOOD CELL COUNT 2.91 mill/uL (4.7-6.1); RED CELL DISTRIBUTION WIDTH 17.1 % (11.6-14.6)
[2021-04-01 12:22] LABS: PROTHROMBIN TIME 11.1 sec (9.6-11.0)
[2021-04-01 12:27] LABS: CHLORIDE 108 mEq/L (98-107)
[2021-04-01 16:00] VITALS: BP 110/78
[2021-04-01 20:00] VITALS: BP 86/50
[2021-04-02] VITALS: BP 79/48
[2021-04-02] MEDS: IPRATROPIUM/ALBUTEROL 0.5-3(2.5)MG/3ML NEB HHN SCH ×6 (00:54→20:20)
[2021-04-02 04:00] VITALS: BP 94/60
[2021-04-02] MEDS: SODIUM CHLORIDE 0.9% INJ 3ML FLUSH IVF SCH ×3 (06:17→23:14)
[2021-04-02] MEDS: GUAIFENESIN 200MG/10ML SUGAR FREE UDC PO SCH ×4 (06:17→23:14)
[2021-04-02] MEDS: BLOOD SUGAR DIAGNOSTIC STRIP TEST SCH ×3 (07:30→21:00)
[2021-04-02 08:00] VITALS: BP 101/62
[2021-04-02] MEDS: INSULIN LISPRO 100 UNITS/ML SUBCUT SCH ×4 (08:00→21:00)
[2021-04-02 08:28] LABS: PROTHROMBIN TIME 10.8 sec (9.6-11.0)
[2021-04-02] MEDS: LEVETIRACETAM 1,250 MG in SODIUM CHLORIDE 0.9% 100 ML IV SCH ×2 (08:57→23:14)
[2021-04-02] MEDS: ASCORBIC ACID 500 MG TABLET PO SCH (08:57)
[2021-04-02] MEDS: MEROPENEM 1,000 MG in SODIUM CHLORIDE 0.9% 100 ML IV SCH ×3 (08:57→23:14)
[2021-04-02] MEDS: PANTOPRAZOLE SODIUM 40 MG/VIAL IV SCH (08:57)
[2021-04-02] MEDS: ZINC SULFATE 220 MG ( 50 ) CAPSULE PO SCH (08:57)
[2021-04-02 09:02] LABS: BASOPHILS % 0.8 % (0.0-2.0); EOSINOPHILS % 2.3 % (0.0-5.0); HEMATOCRIT. 24.9 % (42.0-52.0); HEMOGLOBIN. 8.4 g/dL (14.0-18.0); LYMPHOCYTES % 17.3 % (20.0-50.0); MEAN CORPUSCULAR HEMOGLOBIN 29.3 pg (28.0-32.0); MEAN CORPUSCULAR VOLUME 87.3 fL (80.0-94.0); MONOCYTES % 8.2 % (2.0-8.0); NEUTROPHILS % 71.4 % (40.0-76.0); PLATELET 231 x1000/uL (130-400); RED BLOOD CELL COUNT 2.86 mill/uL (4.7-6.1); RED CELL DISTRIBUTION WIDTH 17.9 % (11.6-14.6)
[2021-04-02] MEDS: MIDODRINE HCL 5MG TABLET PO SCH ×3 (09:04→18:36)
[2021-04-02 09:08] LABS: CHLORIDE 106 mEq/L (98-107)
[2021-04-02 12:00] VITALS: BP 108/67
[2021-04-02 16:00] VITALS: BP 102/75
[2021-04-02 20:00] VITALS: BP 107/63
[2021-04-03] VITALS: BP 105/62
[2021-04-03] MEDS: IPRATROPIUM/ALBUTEROL 0.5-3(2.5)MG/3ML NEB HHN SCH ×6 (00:03→20:33)
[2021-04-03 03:43] VITALS: BP 104/64
[2021-04-03] MEDS: SODIUM CHLORIDE 0.9% INJ 3ML FLUSH IVF SCH ×3 (05:55→21:19)
[2021-04-03] MEDS: GUAIFENESIN 200MG/10ML SUGAR FREE UDC PO SCH ×3 (05:55→17:09)
[2021-04-03 08:00] VITALS: BP 86/46
[2021-04-03] MEDS: BLOOD SUGAR DIAGNOSTIC STRIP TEST SCH ×4 (08:00→21:17)
[2021-04-03] MEDS: INSULIN LISPRO 100 UNITS/ML SUBCUT SCH ×4 (08:00→21:00)
[2021-04-03 08:46] LABS: BASOPHILS % 0.8 % (0.0-2.0); EOSINOPHILS % 3.1 % (0.0-5.0); HEMATOCRIT. 26.5 % (42.0-52.0); HEMOGLOBIN. 8.8 g/dL (14.0-18.0); MEAN CORPUSCULAR HEMOGLOBIN 29.4 pg (28.0-32.0); MEAN CORPUSCULAR VOLUME 88.7 fL (80.0-94.0); MEAN PLATELET VOLUME 8.7 fl (7.4-10.4); MONOCYTES % 8.8 % (2.0-8.0); NEUTROPHILS % 73.3 % (40.0-76.0); PLATELET 242 x1000/uL (130-400); RED BLOOD CELL COUNT 2.99 mill/uL (4.7-6.1); RED CELL DISTRIBUTION WIDTH 18.2 % (11.6-14.6)
[2021-04-03 09:19] LABS: CHLORIDE 107 mEq/L (98-107)
[2021-04-03] MEDS: LEVETIRACETAM 1,250 MG in SODIUM CHLORIDE 0.9% 100 ML IV SCH ×2 (09:19→21:19)
[2021-04-03] MEDS: PANTOPRAZOLE SODIUM 40 MG/VIAL IV SCH (09:19)
[2021-04-03] MEDS ORDERED: CEFAZOLIN 1000MG PREMIX 50 ML IV NR (10:00)
[2021-04-03] MEDS ORDERED: CEFAZOLIN 1000MG PREMIX 50 ML IV ONE (10:00)
[2021-04-03] MEDS: ASCORBIC ACID 500 MG TABLET PO SCH (10:55)
[2021-04-03] MEDS: ZINC SULFATE 220 MG ( 50 ) CAPSULE PO SCH (10:55)
[2021-04-03] MEDS: MIDODRINE HCL 5MG TABLET PO SCH ×3 (10:55→16:54)
[2021-04-03 12:00] VITALS: BP 99/69
[2021-04-03 16:00] VITALS: BP 97/58
[2021-04-03] MEDS: MEROPENEM 1,000 MG in SODIUM CHLORIDE 0.9% 100 ML IV SCH (16:55)
[2021-04-03 20:00] VITALS: BP 89/71
[2021-04-04] VITALS: BP 103/61
[2021-04-04] MEDS: IPRATROPIUM/ALBUTEROL 0.5-3(2.5)MG/3ML NEB HHN SCH ×6 (00:19→21:32)
[2021-04-04] MEDS: MEROPENEM 1,000 MG in SODIUM CHLORIDE 0.9% 100 ML IV SCH ×3 (00:39→18:15)
[2021-04-04] MEDS: GUAIFENESIN 200MG/10ML SUGAR FREE UDC PO SCH ×4 (00:39→18:15)
[2021-04-04 04:00] VITALS: BP 105/63
[2021-04-04] MEDS: SODIUM CHLORIDE 0.9% INJ 3ML FLUSH IVF SCH ×3 (05:40→21:13)
[2021-04-04 06:24] LABS: HEMATOCRIT. 26.8 % (42.0-52.0); HEMOGLOBIN. 9.1 g/dL (14.0-18.0); MEAN CORPUSCULAR HEMOGLOBIN 29.4 pg (28.0-32.0); MEAN CORPUSCULAR VOLUME 86.6 fL (80.0-94.0); MEAN PLATELET VOLUME 8.6 fl (7.4-10.4); PLATELET 219 x1000/uL (130-400); RED BLOOD CELL COUNT 3.09 mill/uL (4.7-6.1); RED CELL DISTRIBUTION WIDTH 18.3 % (11.6-14.6)
[2021-04-04 08:00] VITALS: BP 104/69
[2021-04-04] MEDS: INSULIN LISPRO 100 UNITS/ML SUBCUT SCH ×4 (08:00→20:33)
[2021-04-04] MEDS: BLOOD SUGAR DIAGNOSTIC STRIP TEST SCH ×4 (08:03→20:33)
[2021-04-04] MEDS: ZINC SULFATE 220 MG ( 50 ) CAPSULE PO SCH (08:17)
[2021-04-04] MEDS: ASCORBIC ACID 500 MG TABLET PO SCH (08:17)
[2021-04-04] MEDS: PANTOPRAZOLE SODIUM 40 MG/VIAL IV SCH (09:01)
[2021-04-04] MEDS: MIDODRINE HCL 5MG TABLET PO SCH ×3 (09:02→18:15)
[2021-04-04] MEDS: LEVETIRACETAM 1,250 MG in SODIUM CHLORIDE 0.9% 100 ML IV SCH (10:32)
[2021-04-04 11:14] LABS: CHLORIDE 108 mEq/L (98-107)
[2021-04-04 12:00] VITALS: BP 111/64
[2021-04-04 16:00] VITALS: BP 101/63
[2021-04-04 17:23] LABS: NUCLEATED RED BLOOD CELLS 1 /100 WBC; PLATELET ESTIMATE NORMAL
[2021-04-04 20:00] VITALS: BP 114/57
[2021-04-04] MEDS: LEVETIRACETAM 500MG/5ML CUP PO SCH (21:16)
[2021-04-05] VITALS (7 sets, daily range): BP systolic 98–132; BP diastolic 54–82
[2021-04-05] MEDS: IPRATROPIUM/ALBUTEROL 0.5-3(2.5)MG/3ML NEB HHN SCH ×6 (00:13→20:52)
[2021-04-05] MEDS: MEROPENEM 1,000 MG in SODIUM CHLORIDE 0.9% 100 ML IV SCH ×3 (01:11→16:56)
[2021-04-05] MEDS: GUAIFENESIN 200MG/10ML SUGAR FREE UDC PO SCH ×4 (05:16→17:47)
[2021-04-05] MEDS: SODIUM CHLORIDE 0.9% INJ 3ML FLUSH IVF SCH ×3 (05:25→20:31)
[2021-04-05 06:00] LABS: CHLORIDE 106 mEq/L (98-107)
[2021-04-05 06:27] LABS: BASOPHILS % 1.7 % (0.0-2.0); EOSINOPHILS % 4.8 % (0.0-5.0); HEMATOCRIT. 27.2 % (42.0-52.0); HEMOGLOBIN. 9.1 g/dL (14.0-18.0); MEAN CORPUSCULAR HEMOGLOBIN 29.4 pg (28.0-32.0); MEAN CORPUSCULAR VOLUME 87.5 fL (80.0-94.0); MONOCYTES % 9.7 % (2.0-8.0); NEUTROPHILS % 59.8 % (40.0-76.0); PLATELET 220 x1000/uL (130-400); RED BLOOD CELL COUNT 3.11 mill/uL (4.7-6.1); RED CELL DISTRIBUTION WIDTH 18.2 % (11.6-14.6)
[2021-04-05] MEDS: BLOOD SUGAR DIAGNOSTIC STRIP TEST SCH ×4 (07:39→21:00)
[2021-04-05] MEDS: INSULIN LISPRO 100 UNITS/ML SUBCUT SCH ×4 (08:00→21:00)
[2021-04-05] MEDS: ZINC SULFATE 220 MG ( 50 ) CAPSULE PO SCH (08:41)
[2021-04-05] MEDS: ASCORBIC ACID 500 MG TABLET PO SCH (08:41)
[2021-04-05] MEDS: MIDODRINE HCL 5MG TABLET PO SCH ×3 (08:43→16:56)
[2021-04-05] MEDS: PANTOPRAZOLE SODIUM 40 MG/VIAL IV SCH (08:43)
[2021-04-05] MEDS: LEVETIRACETAM 500MG/5ML CUP PO SCH ×2 (08:44→20:30)
[2021-04-05] MEDS: DIPHENHYDRAMINE 50MG/ML VIAL IV PRN ×2 (13:04→17:47)
[2021-04-05 17:31] LABS: INR 1.1; PROTHROMBIN TIME 11.5 sec (9.6-11.0)
[2021-04-06] VITALS: BP 101/58
[2021-04-06] MEDS: IPRATROPIUM/ALBUTEROL 0.5-3(2.5)MG/3ML NEB HHN SCH ×5 (00:44→21:25)
[2021-04-06 04:00] VITALS: BP 105/57
[2021-04-06] MEDS: GUAIFENESIN 200MG/10ML SUGAR FREE UDC PO SCH ×4 (05:19→18:35)
[2021-04-06] MEDS: SODIUM CHLORIDE 0.9% INJ 3ML FLUSH IVF SCH ×3 (05:19→20:47)
[2021-04-06 05:54] LABS: BASOPHILS % 1.1 % (0.0-2.0); EOSINOPHILS % 5.9 % (0.0-5.0); HEMATOCRIT. 26.2 % (42.0-52.0); HEMOGLOBIN. 8.9 g/dL (14.0-18.0); LYMPHOCYTES % 21.4 % (20.0-50.0); MEAN CORPUSCULAR HEMOGLOBIN 29.4 pg (28.0-32.0); MEAN CORPUSCULAR VOLUME 86.6 fL (80.0-94.0); MEAN PLATELET VOLUME 8.5 fl (7.4-10.4); MONOCYTES % 9.5 % (2.0-8.0); NEUTROPHILS % 62.1 % (40.0-76.0); PLATELET 224 x1000/uL (130-400); RED BLOOD CELL COUNT 3.02 mill/uL (4.7-6.1); RED CELL DISTRIBUTION WIDTH 18.5 % (11.6-14.6)
[2021-04-06 06:01] LABS: CHLORIDE 107 mEq/L (98-107)
[2021-04-06] MEDS: BLOOD SUGAR DIAGNOSTIC STRIP TEST SCH ×4 (07:30→20:44)
[2021-04-06 07:35] VITALS: BP 101/56
[2021-04-06] MEDS: INSULIN LISPRO 100 UNITS/ML SUBCUT SCH ×4 (08:00→20:44)
[2021-04-06] MEDS: ASCORBIC ACID 500 MG TABLET PO SCH (09:00)
[2021-04-06] MEDS: ZINC SULFATE 220 MG ( 50 ) CAPSULE PO SCH (09:00)
[2021-04-06] MEDS: MIDODRINE HCL 5MG TABLET PO SCH ×3 (09:00→18:29)
[2021-04-06] MEDS: LEVETIRACETAM 500MG/5ML CUP PO SCH ×2 (09:00→20:46)
[2021-04-06] MEDS: PANTOPRAZOLE SODIUM 40 MG/VIAL IV SCH (09:44)
[2021-04-06] MEDS ORDERED: CEFAZOLIN 1000MG PREMIX 50 ML IV SCH (10:00)
[2021-04-06] MEDS ORDERED: MIDAZOLAM HCL 5 MG/5 ML VIAL IV PRN (11:25)
[2021-04-06] MEDS ORDERED: MIDAZOLAM HCL 5 MG/5 ML VIAL ONE (11:28)
[2021-04-06] MEDS ORDERED: FENTANYL CITRATE/PF 50MCG/ML 2ML VIAL ONE (11:28)
[2021-04-06 16:00] VITALS: BP 107/67
[2021-04-06 20:00] VITALS: BP 100/53
[2021-04-06] MEDS: DIPHENHYDRAMINE 50MG/ML VIAL IV PRN (22:01)
[2021-04-07] VITALS: BP 112/70
[2021-04-07] MEDS: GUAIFENESIN 200MG/10ML SUGAR FREE UDC PO SCH ×4 (01:10→17:24)
[2021-04-07] MEDS: IPRATROPIUM/ALBUTEROL 0.5-3(2.5)MG/3ML NEB HHN SCH ×5 (01:31→20:14)
[2021-04-07 04:00] VITALS: BP 103/65
[2021-04-07] MEDS: SODIUM CHLORIDE 0.9% INJ 3ML FLUSH IVF SCH ×3 (05:08→21:12)
[2021-04-07 06:11] LABS: BASOPHILS % 0.7 % (0.0-2.0); EOSINOPHILS % 4.8 % (0.0-5.0); HEMATOCRIT. 29.5 % (42.0-52.0); HEMOGLOBIN. 9.9 g/dL (14.0-18.0); LYMPHOCYTES % 17.3 % (20.0-50.0); MEAN CORPUSCULAR VOLUME 86.8 fL (80.0-94.0); MEAN PLATELET VOLUME 8.3 fl (7.4-10.4); NEUTROPHILS % 69.2 % (40.0-76.0); PLATELET 221 x1000/uL (130-400); RED CELL DISTRIBUTION WIDTH 19.1 % (11.6-14.6)
[2021-04-07 06:22] LABS: CHLORIDE 107 mEq/L (98-107)
[2021-04-07] MEDS: BLOOD SUGAR DIAGNOSTIC STRIP TEST SCH ×4 (07:30→20:46)
[2021-04-07 08:00] VITALS: BP 102/56
[2021-04-07] MEDS: INSULIN LISPRO 100 UNITS/ML SUBCUT SCH ×4 (08:00→20:47)
[2021-04-07] MEDS: PANTOPRAZOLE SODIUM 40 MG/VIAL IV SCH (08:14)
[2021-04-07] MEDS: ASCORBIC ACID 500 MG TABLET PO SCH (08:14)
[2021-04-07] MEDS: MIDODRINE HCL 5MG TABLET PO SCH ×3 (08:14→17:24)
[2021-04-07] MEDS: ZINC SULFATE 220 MG ( 50 ) CAPSULE PO SCH (08:14)
[2021-04-07] MEDS: LEVETIRACETAM 500MG/5ML CUP PO SCH ×2 (08:14→21:12)
[2021-04-07 12:00] VITALS: BP 105/62
[2021-04-07 16:01] VITALS: BP 105/62
[2021-04-07] MEDS: DIPHENHYDRAMINE 50MG/ML VIAL IV PRN (17:24)
[2021-04-07 20:00] VITALS: BP 108/64
[2021-04-08] VITALS: BP 119/67
[2021-04-08] MEDS: IPRATROPIUM/ALBUTEROL 0.5-3(2.5)MG/3ML NEB HHN SCH ×5 (00:06→15:14)
[2021-04-08] MEDS: GUAIFENESIN 200MG/10ML SUGAR FREE UDC PO SCH ×4 (02:00→17:07)
[2021-04-08 04:00] VITALS: BP 123/60
[2021-04-08] MEDS: SODIUM CHLORIDE 0.9% INJ 3ML FLUSH IVF SCH ×2 (05:58→14:26)
[2021-04-08] MEDS: BLOOD SUGAR DIAGNOSTIC STRIP TEST SCH ×3 (07:25→17:30)
[2021-04-08] MEDS: INSULIN LISPRO 100 UNITS/ML SUBCUT SCH ×3 (07:25→17:31)
[2021-04-08 07:59] VITALS: BP 99/55
[2021-04-08 08:05] LABS: MEAN CORPUSCULAR HEMOGLOBIN 29.4 pg (28.0-32.0); MEAN CORPUSCULAR VOLUME 87.9 fL (80.0-94.0); MEAN PLATELET VOLUME 8.5 fl (7.4-10.4); PLATELET 278 x1000/uL (130-400); RED BLOOD CELL COUNT 3.75 mill/uL (4.7-6.1); RED CELL DISTRIBUTION WIDTH 19.1 % (11.6-14.6)
[2021-04-08] MEDS: LEVETIRACETAM 500MG/5ML CUP PO SCH (08:22)
[2021-04-08] MEDS: PANTOPRAZOLE SODIUM 40 MG/VIAL IV SCH (08:22)
[2021-04-08] MEDS: ASCORBIC ACID 500 MG TABLET PO SCH (08:23)
[2021-04-08] MEDS: ZINC SULFATE 220 MG ( 50 ) CAPSULE PO SCH (08:23)
[2021-04-08] MEDS: MIDODRINE HCL 5MG TABLET PO SCH ×3 (08:25→17:00)
[2021-04-08 08:40] LABS: CHLORIDE 106 mEq/L (98-107)
[2021-04-08 10:20] LABS: PLATELET ESTIMATE NORMAL
[2021-04-08 12:00] VITALS: BP 106/59
[2021-04-08 12:15] VITALS: BP 106/59
[2021-04-08 15:57] VITALS: BP 116/71
[2021-04-08] MEDS: DIPHENHYDRAMINE 50MG/ML VIAL IV PRN (16:32)
[2021-04-08] MEDS ORDERED: DOCUSATE SODIUM 100MG CAPSULE PEG SCH (17:00)
[2021-04-08] MEDS ORDERED: SENNOSIDES 8.6MG TABLET PEG SCH (21:00)
[2021-04-09] MEDS ORDERED: POLYETHYLENE GLYCOL 3350 (17GM) 1 DOSE PACK PEG SCH (09:00)
== END 2021-04-08 23:35 | DRG 871 ==
LOC: ER 13:35 → CVICU 15:34 → EDBEDREQ 15:39 → ENRESERV 03-16 01:58 → 5EST 03-27 18:05
PROVIDERS: ADMIT Internal Medicine; ATTEND Internal Medicine
PROC: 4A10X4Z Monitoring of Central Nervous Electrical Activity, External Approach (ICD-10-PCS; 2021-03-24)
PROC: 0DH63UZ Insertion of Feeding Device into Stomach, Percutaneous Approach (ICD-10-PCS; principal; 2021-04-06)
DX: A41.59 Other Gram-negative sepsis (principal); J69.0 Pneumonitis due to inhalation of food and vomit; J96.01 Acute respiratory failure with hypoxia; N17.0 Acute kidney failure with tubular necrosis; R65.21 Severe sepsis with septic shock; E43 Unspecified severe protein-calorie malnutrition; J15.0 Pneumonia due to Klebsiella pneumoniae; D65 Disseminated intravascular coagulation [defibrination syndrome]; G92.8 Other toxic encephalopathy; I21.4 Non-ST elevation (NSTEMI) myocardial infarction; E87.0 Hyperosmolality and hypernatremia; M62.82 Rhabdomyolysis; E87.2 Acidosis; Z16.12 Extended spectrum beta lactamase (ESBL) resistance; D61.818 Other pancytopenia; N39.0 Urinary tract infection, site not specified; Z68.1 Body mass index [BMI] 19.9 or less, adult; E87.6 Hypokalemia; F02.80 Dementia in other diseases classified elsewhere, unspecified severity, without behavioral disturbance, psychotic disturbance, mood disturbance, and anxiety; G30.9 Alzheimer's disease, unspecified; F41.9 Anxiety disorder, unspecified; F32.A Depression, unspecified; R13.12 Dysphagia, oropharyngeal phase; G40.909 Epilepsy, unspecified, not intractable, without status epilepticus; S90.822A Blister (nonthermal), left foot, initial encounter; S90.821A Blister (nonthermal), right foot, initial encounter; X58.XXXA Exposure to other specified factors, initial encounter; S90.511A Abrasion, right ankle, initial encounter; S80.812A Abrasion, left lower leg, initial encounter; L85.3 Xerosis cutis; R62.7 Adult failure to thrive; K21.9 Gastro-esophageal reflux disease without esophagitis; I25.10 Atherosclerotic heart disease of native coronary artery without angina pectoris; L89.156 Pressure-induced deep tissue damage of sacral region; E83.39 Other disorders of phosphorus metabolism; D63.8 Anemia in other chronic diseases classified elsewhere; E78.5 Hyperlipidemia, unspecified; E86.0 Dehydration; D50.9 Iron deficiency anemia, unspecified; I12.9 Hypertensive chronic kidney disease with stage 1 through stage 4 chronic kidney disease, or unspecified chronic kidney disease; E78.00 Pure hypercholesterolemia, unspecified; Y95 Nosocomial condition; Z20.822 Contact with and (suspected) exposure to COVID-19; Y93.89 Activity, other specified; Y92.89 Other specified places as the place of occurrence of the external cause; Y99.8 Other external cause status; Z95.1 Presence of aortocoronary bypass graft
CPT/HCPCS: 36415; 36600; 71045; 76770; 80048; 80053; 80202; 81003; 82040; 82270; 82375; 82550; 82728; 82746; 82805; 82962; 83036; 83540; 83550; 83605; 83735; 84100; 84134; 84145; 84443; 84484; 85014; 85018; 85025; 85044; 86038; 86850; 86870; 86900; 86920; 87070; 87077; 87186; 87426; 92610; 93005; 93306; 93970; 94640; 94667; 95816; 97161; 99291; C9113; J0456; J0690; J1200; J1650; J1815; J1953; J2060; J2185; J2250; J2405; J2543; J3010; J3370; J3480; J3490; J7030; J7040; J7050; J7060; J7070; J7120; J7131

== ENCOUNTER 2022-03-16 12:43 | Emergency (ER) | payer MEDICARE, MEDICAID ==
[~2022-03-16] VITALS: Ht 170.2 cm; Wt 63.0 kg
[~2022-03-16 12:43] MED LIST: ASCO500C18 MT; CLOB60CR4 TP; FERR325T6 MT; IPRA3AMP31 NEB; LEVE10006 MT; MULT1CAP44 MT; OMEP40CA20 MT; POLY17PO3 MT; SENN8.6T21 MT
[2022-03-16 13:21] LABS: BASOPHILS % 0.5 % (0.0-2.0); EOSINOPHILS % 1.3 % (0.0-5.0); HEMATOCRIT. 38.3 % (42.0-52.0); HEMOGLOBIN. 12.8 g/dL (14.0-18.0); LYMPHOCYTES % 14.3 % (20.0-50.0); MEAN CORPUSCULAR HEMOGLOBIN 30.8 pg (28.0-32.0); MEAN CORPUSCULAR VOLUME 91.8 fL (80.0-94.0); MEAN PLATELET VOLUME 7.2 fl (7.4-10.4); MONOCYTES % 6.8 % (2.0-8.0); NEUTROPHILS % 77.1 % (40.0-76.0); PLATELET 142 x1000/uL (130-400); RED BLOOD CELL COUNT 4.17 mill/uL (4.7-6.1); RED CELL DISTRIBUTION WIDTH 15.1 % (11.6-14.6)
[2022-03-16 13:31] LABS: CHLORIDE 103 mEq/L (98-107)
[2022-03-16 18:33] VITALS: BP 149/80
== END 2022-03-16 23:42 ==
LOC: ER 12:43
DX: G40.909 Epilepsy, unspecified, not intractable, without status epilepticus (principal); I10 Essential (primary) hypertension; E11.9 Type 2 diabetes mellitus without complications
CPT/HCPCS: 36415; 71045; 80053; 85025; 99285

== ENCOUNTER 2022-07-04 07:11 | Emergency (ER) | payer MEDICARE, MEDICAID ==
[~2022-07-04] VITALS: Ht 182.9 cm; Wt 64.0 kg
[2022-07-04 08:56] LABS: CHLORIDE 104 mEq/L (98-107)
[2022-07-04 08:58] LABS: BASOPHILS % 0.5 % (0.0-2.0); EOSINOPHILS % 2.4 % (0.0-5.0); HEMATOCRIT. 42.9 % (42.0-52.0); HEMOGLOBIN. 14.2 g/dL (14.0-18.0); LYMPHOCYTES % 18.4 % (20.0-50.0); MEAN CORPUSCULAR HEMOGLOBIN 28.2 pg (28.0-32.0); MEAN CORPUSCULAR VOLUME 85.3 fL (80.0-94.0); MEAN PLATELET VOLUME 7.7 fl (7.4-10.4); MONOCYTES % 8.8 % (2.0-8.0); NEUTROPHILS % 69.9 % (40.0-76.0); PLATELET 165 x1000/uL (130-400); RED BLOOD CELL COUNT 5.03 mill/uL (4.7-6.1); RED CELL DISTRIBUTION WIDTH 19.8 % (11.6-14.6)
[2022-07-04 09:03] LABS: ETHANOL BLOOD < 10 mg/dL
[2022-07-04] MEDS: LEVETIRACETAM 500MG PREMIX 100 ML IV ONE (09:27)
[2022-07-04] MEDS: HALOPERIDOL LACTATE 5MG/ML VIAL IM ONE (10:56)
[2022-07-04 15:00] VITALS: BP 136/88
== END 2022-07-04 15:08 | disposition home or self-care (01) ==
LOC: ER 07:11
DX: G40.509 Epileptic seizures related to external causes, not intractable, without status epilepticus (principal); D72.819 Decreased white blood cell count, unspecified; I10 Essential (primary) hypertension; E78.00 Pure hypercholesterolemia, unspecified; E11.9 Type 2 diabetes mellitus without complications; Z13.9 Encounter for screening, unspecified
CPT/HCPCS: 36415; 71045; 80053; 80320; 82140; 82962; 83690; 85025; 96365; 96372; 99285; J1630; J1953; G0480

== ENCOUNTER 2023-06-06 08:35 | Inpatient (IN) | payer MEDICARE, MEDICAID ==
[~2023-06-06] VITALS: Ht 165.1 cm; Wt 60.5 kg
[2023-06-06] MEDS ORDERED: LEVETIRACETAM 1000MG PREMIX 100 ML IV ONE (09:00)
[2023-06-06 09:31] LABS: BASOPHILS % 0.6 % (0.0-2.0); EOSINOPHILS % 1.7 % (0.0-5.0); HEMATOCRIT. 42.3 % (42.0-52.0); HEMOGLOBIN. 14.1 g/dL (14.0-18.0); LYMPHOCYTES % 14.6 % (20.0-50.0); MEAN CORPUSCULAR HEMOGLOBIN 29.4 pg (28.0-32.0); MEAN CORPUSCULAR HGB CONC 33.3 g/dL (31.0-37.0); MEAN CORPUSCULAR VOLUME 88.2 fL (80.0-94.0); MEAN PLATELET VOLUME 7.7 fl (7.4-10.4); MONOCYTES % 5.2 % (2.0-8.0); NEUTROPHILS % 77.9 % (40.0-76.0); PLATELET 174 x1000/uL (130-400); RED BLOOD CELL COUNT 4.79 mill/uL (4.7-6.1); RED CELL DISTRIBUTION WIDTH 15.8 % (11.6-14.6)
[2023-06-06] MEDS ORDERED: HALOPERIDOL LACTATE 5MG/ML VIAL IM NR (09:45)
[2023-06-06 09:59] LABS: ALANINE AMINOTRANSFERASE < 7 IU/L (10-49); ALBUMIN 3.9 g/dL (3.2-4.8); ASPARTATE AMINOTRANSFERASE 14 IU/L (<34); BILIRUBIN TOTAL 0.4 mg/dL (0.1-1.0); CARBON DIOXIDE 31 mEq/L (21-32); CHLORIDE 103 mEq/L (98-107); CREATININE 0.8 mg/dL (0.6-1.3); ETHANOL BLOOD < 10 mg/dL (<10); GLUCOSE 103 mg/dL (70-105); POTASSIUM 4.1 mEq/L (3.5-5.1); PROTEIN TOTAL 7.4 g/dL (6.0-8.3); SODIUM 140 mEq/L (136-145); TROPONIN I HIGH SENSITIVITY 4 ng/L (3.0-53); UREA NITROGEN BLOOD 17 mg/dL (9-23)
[2023-06-06 11:04] LABS: LACTIC ACID 2.6 mmol/L (0.4-2.0)
[2023-06-06] MEDS ORDERED: LORAZEPAM 2MG/ML SYR IV NR (12:00)
[2023-06-06] MEDS ORDERED: ZOLPIDEM TARTRATE 5MG TABLET PO PRN (12:15)
[2023-06-06] MEDS ORDERED: KETOROLAC 15MG/ML VIAL IV PRN (12:15)
[2023-06-06] MEDS ORDERED: GUAIFENESIN 200MG/10ML SUGAR FREE UDC PO PRN (12:15)
[2023-06-06] MEDS ORDERED: NITROGLYCERIN 0.4MG TABLET SL SL PRN (12:15)
[2023-06-06] MEDS ORDERED: MAGNESIUM/ALUMINUM HYDROXIDE/SIMETHICONE 30ML UDC PO PRN (12:15)
[2023-06-06] MEDS ORDERED: CLONIDINE 0.1MG TABLET PO PRN (12:15)
[2023-06-06] MEDS ORDERED: ONDANSETRON HCL 4MG/2ML INJ IV PRN (12:15)
[2023-06-06] MEDS ORDERED: IPRATROPIUM/ALBUTEROL 0.5-3(2.5)MG/3ML NEB NEB PRN (12:15)
[2023-06-06] MEDS ORDERED: DOCUSATE SODIUM 100MG CAPSULE PO PRN (12:15)
[2023-06-06] MEDS ORDERED: ACETAMINOPHEN 325MG TABLET PO PRN ×2 (12:15)
[2023-06-06] MEDS: ENOXAPARIN 40MG/0.4ML SYR SUBCUT SCH (14:06)
[2023-06-06 14:46] LABS: CHOLESTEROL 166 mg/dL (<200); HDL CHOLESTEROL 29 mg/dL (>55); IRON 53 ug/dL (65-175); LDL CHOLESTEROL 137 mg/dL (5-100); T4 FREE 1.09 ng/dL (0.89-1.76); THYROID STIMULATING HORMONE 2.32 uIU/mL (0.55-4.78); TOTAL IRON BINDING CAPACITY 326 ug/dl (250-425); TRIGLYCERIDE 110 mg/dL (0-150)
[2023-06-06 15:27] LABS: FOLIC ACID (FOLATE) SERUM > 20.00 ng/mL (>5.38); VITAMIN B12 SERUM 670 pg/mL (211-911)
[2023-06-06] MEDS: BLOOD SUGAR DIAGNOSTIC STRIP TEST SCH ×2 (19:30→21:00)
[2023-06-06] MEDS: INSULIN LISPRO 100 UNITS/ML SUBCUT SCH ×2 (19:30→21:00)
[2023-06-06 20:49] LABS: CLARITY URINE CLEAR (CLEAR); COLOR URINE YELLOW (YELLOW); GLUCOSE URINE NEGATIVE (NEGATIVE); KETONES URINE NEGATIVE (NEGATIVE); LEUKOCYTE ESTERASE URINE NEGATIVE (NEGATIVE); NITRITE URINE NEGATIVE (NEGATIVE); OCCULT BLOOD URINE NEGATIVE (NEGATIVE); PROTEIN URINE NEGATIVE (NEGATIVE); UROBILINOGEN URINE 0.2 E.U./dL (0.2-1.0)
[2023-06-06 20:59] LABS: *AMPHETAMINES SCREEN URINE NEGATIVE (NEGATIVE); *BARBITURATES SCREEN URINE NEGATIVE (NEGATIVE); *BENZODIAZEPINES SCREEN URINE NEGATIVE (NEGATIVE); *COCAINE SCREEN URINE NEGATIVE (NEGATIVE); CANNABINOID URINE SCREEN NEGATIVE (NEGATIVE); ECSTASY MDMA SCREEN URINE NEGATIVE (NEGATIVE); METHADONE URINE SCREEN Neg (NEGATIVE); OPIATES URINE SCREEN NEGATIVE (NEGATIVE); PHENCYCLIDINE URINE SCREEN NEGATIVE (NEGATIVE)
[2023-06-06] MEDS ORDERED: LEVETIRACETAM 1000MG PREMIX 100 ML IV SCH (21:00)
[2023-06-06] MEDS ORDERED: LEVETIRACETAM 500MG PREMIX 100 ML IV SCH (21:00)
[2023-06-06] MEDS ORDERED: GUAI10LI14 PO (21:14)
[2023-06-06] MEDS ORDERED: INSU100V40 (21:14)
[2023-06-06] MEDS ORDERED: TRAZ-251 PO (21:14)
[2023-06-06] MEDS ORDERED: ENOX40SY27 SQ (21:14)
[2023-06-06] MEDS ORDERED: DOCU100T MT (21:14)
[2023-06-06] MEDS ORDERED: LEVE500S9 PO (21:14)
[2023-06-06] MEDS ORDERED: TOPUD PO (21:14)
[2023-06-06 21:24] VITALS: BP 127/85; PULSE 70; RESP 18; TEMP 97.2
[2023-06-06 21:29] VITALS: BP 127/85; PULSE 70; RESP 18; TEMP 97.2
[2023-06-06] MEDS ORDERED: LEVETIRACETAM 1,000 MG in SODIUM CHLORIDE 0.9% 100 ML IV SCH (22:00)
[2023-06-06] MEDS: ATORVASTATIN CALCIUM 40MG TABLET PO SCH (22:00)
[2023-06-06] MEDS: FAMOTIDINE 20MG TABLET PO SCH (22:01)
[2023-06-07] VITALS: BP 125/78; PULSE 52; RESP 19; TEMP 96
[2023-06-07 03:33] LABS: CREATINE KINASE MB FRACTION 3.7 ng/mL (0.5-3.6)
[2023-06-07 04:00] VITALS: BP 137/81; PULSE 56; RESP 18; TEMP 97.2
[2023-06-07] MEDS: BLOOD SUGAR DIAGNOSTIC STRIP TEST SCH ×4 (06:19→20:56)
[2023-06-07] MEDS: INSULIN LISPRO 100 UNITS/ML SUBCUT SCH ×4 (07:53→20:56)
[2023-06-07 08:00] VITALS: BP 98/60; PULSE 58; RESP 18; TEMP 97.2
[2023-06-07 08:06] LABS: BASOPHILS % 0.7 % (0.0-2.0); EOSINOPHILS % 2.1 % (0.0-5.0); HEMATOCRIT. 41.7 % (42.0-52.0); HEMOGLOBIN. 14.1 g/dL (14.0-18.0); LYMPHOCYTES % 19.4 % (20.0-50.0); MEAN CORPUSCULAR HEMOGLOBIN 29.3 pg (28.0-32.0); MEAN CORPUSCULAR HGB CONC 33.7 g/dL (31.0-37.0); MEAN CORPUSCULAR VOLUME 86.9 fL (80.0-94.0); MEAN PLATELET VOLUME 7.9 fl (7.4-10.4); MONOCYTES % 7.5 % (2.0-8.0); NEUTROPHILS % 70.3 % (40.0-76.0); PLATELET 166 x1000/uL (130-400); RED CELL DISTRIBUTION WIDTH 16.1 % (11.6-14.6); WHITE BLOOD COUNT 4.4 x1000/uL (4.5-11.0)
[2023-06-07 08:52] LABS: ALANINE AMINOTRANSFERASE < 7 IU/L (10-49); ALBUMIN 3.7 g/dL (3.2-4.8); ASPARTATE AMINOTRANSFERASE 17 IU/L (<34); BILIRUBIN TOTAL 0.6 mg/dL (0.1-1.0); CALCIUM 8.9 mg/dL (8.7-10.4); CARBON DIOXIDE 30 mEq/L (21-32); CHLORIDE 105 mEq/L (98-107); CREATININE 0.8 mg/dL (0.6-1.3); GLUCOSE 96 mg/dL (70-105); PHOSPHORUS 3.5 mg/dL (2.5-4.9); POTASSIUM 4.1 mEq/L (3.5-5.1); SODIUM 140 mEq/L (136-145); UREA NITROGEN BLOOD 16 mg/dL (9-23)
[2023-06-07] MEDS ORDERED: LEVETIRACETAM 1,000 MG in SODIUM CHLORIDE 0.9% 100 ML IV SCH (09:00)
[2023-06-07 09:12] LABS: CREATINE KINASE MB FRACTION 3.1 ng/mL (0.5-3.6)
[2023-06-07] MEDS: FAMOTIDINE 20MG TABLET PO SCH (09:46)
[2023-06-07] MEDS: LEVETIRACETAM 1,000 MG in SODIUM CHLORIDE 0.9% 100 ML IV SCH ×2 (11:28→20:54)
[2023-06-07 12:00] VITALS: BP 90/59; PULSE 57; RESP 18; TEMP 97.1
[2023-06-07] MEDS: ENOXAPARIN 40MG/0.4ML SYR SUBCUT SCH (15:23)
[2023-06-07 16:00] VITALS: BP 92/56; PULSE 60; RESP 18; TEMP 97.1
[2023-06-07] MEDS ORDERED: KETOROLAC 15MG/ML VIAL IV PRN (17:45)
[2023-06-07 20:00] VITALS: BP 118/82; PULSE 63; RESP 20; TEMP 97.5
[2023-06-07] MEDS: TRAZODONE HCL 50MG TABLET PO SCH (20:54)
[2023-06-07] MEDS: ATORVASTATIN CALCIUM 40MG TABLET PO SCH (20:55)
[2023-06-08] VITALS: BP 156/90; PULSE 80; RESP 20; TEMP 97.2
[2023-06-08 04:00] VITALS: BP 113/71; PULSE 68; RESP 19; TEMP 96.5
[2023-06-08] MEDS: DEXTROSE 50% WATER 50ML SYRINGE IV PRN ×2 (06:00→13:18)
[2023-06-08] MEDS: BLOOD SUGAR DIAGNOSTIC STRIP TEST SCH ×4 (06:04→20:50)
[2023-06-08] MEDS: INSULIN LISPRO 100 UNITS/ML SUBCUT SCH ×4 (07:15→21:00)
[2023-06-08 08:00] VITALS: BP 141/81; PULSE 60; RESP 17; TEMP 98.4
[2023-06-08] MEDS: FAMOTIDINE 20MG TABLET PO SCH (08:31)
[2023-06-08] MEDS: LEVETIRACETAM 1,000 MG in SODIUM CHLORIDE 0.9% 100 ML IV SCH ×2 (09:57→21:29)
[2023-06-08 12:34] VITALS: BP 100/77; PULSE 92; RESP 17; TEMP 97.4
[2023-06-08] MEDS: ENOXAPARIN 40MG/0.4ML SYR SUBCUT SCH (13:18)
[2023-06-08 16:00] VITALS: BP 144/83; PULSE 60; RESP 19; TEMP 97.5
[2023-06-08] MEDS: ATORVASTATIN CALCIUM 40MG TABLET PO SCH (21:29)
[2023-06-08] MEDS: TRAZODONE HCL 50MG TABLET PO SCH (21:30)
[2023-06-09] VITALS: BP 126/70; PULSE 70; RESP 19; TEMP 96.2
[2023-06-09] MEDS: BLOOD SUGAR DIAGNOSTIC STRIP TEST SCH ×2 (07:20→12:20)
[2023-06-09] MEDS: INSULIN LISPRO 100 UNITS/ML SUBCUT SCH ×2 (07:50→12:50)
[2023-06-09 08:00] VITALS: BP 140/87; PULSE 53; RESP 18; TEMP 96.9
[2023-06-09] MEDS: FAMOTIDINE 20MG TABLET PO SCH (09:00)
[2023-06-09] MEDS ORDERED: LIP40 PO (09:12)
[2023-06-09] MEDS: LEVETIRACETAM 1,000 MG in SODIUM CHLORIDE 0.9% 100 ML IV SCH (09:39)
[2023-06-09 11:04] VITALS: BP 140/87; PULSE 53; TEMP 96.9; O2SAT 98
[2023-06-09 12:00] VITALS: BP 153/90; PULSE 72; RESP 18; TEMP 97.7
[2023-06-09] MEDS: ENOXAPARIN 40MG/0.4ML SYR SUBCUT SCH (13:00)
== END 2023-06-09 14:54 | DRG 101 ==
LOC: ER 08:35 → 7WST 10:15 → 6EST 06-08 14:09
PROVIDERS: ADMIT Internal Medicine; ATTEND Internal Medicine
DX: G40.909 Epilepsy, unspecified, not intractable, without status epilepticus (principal); E87.20 Acidosis, unspecified; E78.5 Hyperlipidemia, unspecified; E11.9 Type 2 diabetes mellitus without complications; I11.9 Hypertensive heart disease without heart failure; J44.9 Chronic obstructive pulmonary disease, unspecified; Z87.440 Personal history of urinary (tract) infections; Z95.1 Presence of aortocoronary bypass graft; Z74.01 Bed confinement status; Z93.1 Gastrostomy status
CPT/HCPCS: 36415; 71045; 80053; 80061; 80305; 80320; 81003; 82550; 82553; 82607; 82746; 82962; 83036; 83540; 83550; 83605; 83735; 84100; 84439; 84443; 84484; 85025; 93005; 93306; 93970; 99285; A6261; J1630; J1650; J1815; J1953; J2060; J7050; G0480

== ENCOUNTER 2023-06-20 07:11 | Emergency (ER) | payer MEDICAID, MEDICARE ==
[~2023-06-20] VITALS: Ht 172.7 cm; Wt 72.0 kg
[~2023-06-20 07:11] MED LIST changes: -CLOB60CR4 TP; +DOCU100T MT; +ENOX40SY27 SQ; +GUAI10LI14 PO; +INSU100V40; -LEVE10006 MT; +LEVE500S9 PO; +LIP40 PO; +TOPUD PO; +TRAZ-251 PO
[2023-06-20 07:29] VITALS: TEMP 98.6; O2SAT 97
[2023-06-20] MEDS ORDERED: MIDAZOLAM HCL 2 MG/2 ML VIAL IM PRN (08:45)
[2023-06-20] MEDS ORDERED: LEVETIRACETAM 1000MG PREMIX 100 ML IV ONE (08:45)
[2023-06-20 09:30] LABS: BASOPHILS % 0.3 % (0.0-2.0); EOSINOPHILS % 0.7 % (0.0-5.0); HEMATOCRIT. 45.8 % (42.0-52.0); HEMOGLOBIN. 15.8 g/dL (14.0-18.0); MEAN CORPUSCULAR HEMOGLOBIN 30.1 pg (28.0-32.0); MEAN CORPUSCULAR HGB CONC 34.5 g/dL (31.0-37.0); MEAN CORPUSCULAR VOLUME 87.4 fL (80.0-94.0); MEAN PLATELET VOLUME 8.6 fl (7.4-10.4); MONOCYTES % 6.3 % (2.0-8.0); NEUTROPHILS % 82.7 % (40.0-76.0); PLATELET 202 x1000/uL (130-400); RED BLOOD CELL COUNT 5.24 mill/uL (4.7-6.1); RED CELL DISTRIBUTION WIDTH 16.8 % (11.6-14.6); WHITE BLOOD COUNT 6.6 x1000/uL (4.5-11.0)
[2023-06-20 10:31] LABS: ALANINE AMINOTRANSFERASE 8 IU/L (10-49); ALBUMIN 4.1 g/dL (3.2-4.8); ASPARTATE AMINOTRANSFERASE 21 IU/L (<34); BILIRUBIN TOTAL 0.6 mg/dL (0.1-1.0); CALCIUM 9.2 mg/dL (8.7-10.4); CARBON DIOXIDE 30 mEq/L (21-32); CHLORIDE 105 mEq/L (98-107); CREATININE 0.8 mg/dL (0.6-1.3); GLUCOSE 110 mg/dL (70-105); PROTEIN TOTAL 7.9 g/dL (6.0-8.3); SODIUM 139 mEq/L (136-145); THYROID STIMULATING HORMONE 3.16 uIU/mL (0.55-4.78); TROPONIN I HIGH SENSITIVITY 5 ng/L (3.0-53); UREA NITROGEN BLOOD 17 mg/dL (9-23)
[2023-06-20 18:00] VITALS: BP 157/104; PULSE 118; RESP 16
== END 2023-06-20 19:39 | disposition home or self-care (01) ==
LOC: ER 07:11
DX: G40.89 Other seizures (principal); J44.9 Chronic obstructive pulmonary disease, unspecified; I11.9 Hypertensive heart disease without heart failure; D64.9 Anemia, unspecified; Z98.890 Other specified postprocedural states
CPT/HCPCS: 99285; 96365; 70450; 71045; 80053; 83880; 84443; 85025; 84484; 36415; 93005; J1953